=== PATIENT | female | born 1955 | race Caucasian/White ===

== ENCOUNTER → 2017-09-05 | Outpatient (CLI) | payer OTHER ==
[~2017-09-05] MED LIST: FLEXERIL PO; HYDROCHLOROTH12.5 MG PO; HYDROCODON-ACE1 EAC7 PO; LO-DOSE ASPIRIN81 M1 PO; NAPROSYN500 MG PO; SYNTHROID112 MCG PO
== END ==
LOC: M.RAD 12:53
DX: Z12.31 Encounter for screening mammogram for malignant neoplasm of breast (principal); Z13.820 Encounter for screening for osteoporosis; M85.89 Other specified disorders of bone density and structure, multiple sites; Z78.0 Asymptomatic menopausal state

== ENCOUNTER → 2017-12-08 | Outpatient (CLI) | payer OTHER | LOC: M.RAD 14:29 | DX: M47.816 Spondylosis without myelopathy or radiculopathy, lumbar region (principal); M41.86 Other forms of scoliosis, lumbar region; M48.061 Spinal stenosis, lumbar region without neurogenic claudication; M48.07 Spinal stenosis, lumbosacral region; I70.0 Atherosclerosis of aorta ==

== ENCOUNTER → 2018-09-06 | Outpatient (CLI) | payer OTHER | LOC: M.RAD 09:10 | DX: Z12.31 Encounter for screening mammogram for malignant neoplasm of breast (principal) ==

== ENCOUNTER → 2019-08-08 | Outpatient (CLI) | payer MEDICARE, OTHER | LOC: M.ULTRA 07:35 | DX: Z85.850 Personal history of malignant neoplasm of thyroid (principal); E89.0 Postprocedural hypothyroidism ==

== ENCOUNTER → 2019-10-23 | Outpatient (CLI) | payer MEDICARE, OTHER | LOC: M.RAD 09:21 | DX: Z12.31 Encounter for screening mammogram for malignant neoplasm of breast (principal); M85.88 Other specified disorders of bone density and structure, other site ==

== ENCOUNTER → 2020-10-29 | Outpatient (CLI) | payer MEDICARE, OTHER | LOC: M.RAD 10:26 | PROVIDERS: ATTEND Family Medicine | DX: Z12.31 Encounter for screening mammogram for malignant neoplasm of breast (principal) ==